=== PATIENT | male | born 1975 | race Caucasian/White ===

== ENCOUNTER 2016-10-08 16:12 | Emergency (ER) | payer SELFPAY ==
[~2016-10-08] VITALS: Ht 167.6 cm; Wt 100.0 kg
[2016-10-08] MEDS ORDERED: ALBU8HFA IH (16:41)
[2016-10-08] MEDS ORDERED: SODIUM CHLORIDE 0.9% 1,000 ML IV ONE (20:15)
[2016-10-08 20:24] LABS: EOSINOPHILS % (AUTO) 0.2 % (1.0-6.0); HEMATOCRIT 37.5 % (41-53); HEMOGLOBIN 12.2 g/dL (13.5-17.5); LYMPHOCYTES # (AUTO) 1.5 K/uL (1.0-4.8); LYMPHOCYTES % (AUTO) 15.1 % (22.0-44.0); MEAN CORPUSCULAR HEMOGLOBIN 22.5 pg (26.0-34.0); MEAN CORPUSCULAR HGB CONC 32.6 G/dL (31.0-37.0); MEAN CORPUSCULAR VOLUME 69 fL (80-100); MONOCYTES # (AUTO) 0.5 K/uL (0.1-1.0); MONOCYTES % (AUTO) 4.8 % (2.0-9.0); NEUTROPHILS % (AUTO) 79.9 % (40.0-70.0); PLATELET COUNT (AUTO) 394 K/uL (150-450); RED BLOOD CELL COUNT(AUTO) 5.44 MIL/uL (4.50-5.90); RED CELL DISTRIBUTION WIDTH 28.4 % (11.5-14.5)
[2016-10-08 20:38] LABS: ANION GAP 12 mmol/L (8-16); CALCIUM, TOTAL 9.4 mg/dL (8.8-10.5); CARBON DIOXIDE 24 mmol/L (22-29); CHLORIDE 102 mmol/L (98-107); CREATININE 0.95 mg/dL (0.60-1.30); GLOMERULAR FILTR. RATE CALC > 60 mL/min (>60); POTASSIUM 3.6 mmol/L (3.5-5.1); SODIUM SERUM 138 mmol/L (136-145); UREA NITROGEN, BLOOD 15 mg/dL (7-18)
[2016-10-08 20:49] LABS: ALANINE AMINOTRANSFERASE 212 U/L (12-78); ALBUMIN 4.5 g/dL (3.4-5.0); ASPARTATE AMINOTRANSFERASE 98 U/L (15-37); BILIRUBIN,TOTAL 0.8 mg/dL (0.1-1.0); TOTAL PROTEIN, SERUM 8.3 g/dL (6.4-8.2)
[2016-10-08] MEDS ORDERED: LORazepam 2 MG/ML VIAL IVP ONE (21:45)
[2016-10-08 22:10] LABS: RBC MORPHOLOGY COMMENT DIMORPHIC RBC
[2016-10-08] MEDS ORDERED: ONDANSETRON HCL 4 MG/2 ML VIAL IVP ONE (22:15)
[2016-10-08] MEDS ORDERED: RANITIDINE HCL 150 MG TABLET PO ONE (22:15)
[2016-10-09 00:31] VITALS: BP 144/80
== END 2016-10-09 01:05 | disposition home or self-care (01) ==
LOC: EMS 16:15
DX: F41.9 Anxiety disorder, unspecified (principal); R06.02 Shortness of breath; I10 Essential (primary) hypertension; F15.10 Other stimulant abuse, uncomplicated; F10.10 Alcohol abuse, uncomplicated; R73.9 Hyperglycemia, unspecified; F17.210 Nicotine dependence, cigarettes, uncomplicated
CPT/HCPCS: 36415; 80053; 80307; 84484; 85025; 93005; 96361; 96374; 96375; 99285; G0480; J2060; J2405; J7030